=== PATIENT | male | born 1950 | race Caucasian/White ===

== ENCOUNTER 2023-08-17 11:34 | Inpatient (IN) | payer OTHER, MEDICAID ==
[~2023-08-17] VITALS: Ht 177.8 cm; Wt 81.2 kg
[2023-08-17 12:00] VITALS: BP 120/84; PULSE 96; RESP 16; TEMP 99.1; O2SAT 99
[2023-08-17] MEDS ORDERED: ASPI-1822 PO (12:08)
[2023-08-17] MEDS ORDERED: SODI100076 PO (12:08)
[2023-08-17] MEDS ORDERED: LOSA25TA32 PO (12:08)
[2023-08-17] MEDS ORDERED: ACET-9525 PO (12:08)
[2023-08-17] MEDS ORDERED: LACT-58 PO (12:08)
[2023-08-17] MEDS ORDERED: ESCI10TA PO (12:08)
[2023-08-17 12:22] LABS: BASOPHILS # (AUTO) 0.1 K/uL (0.00-0.22); BASOPHILS % (AUTO) 0.8 % (0.0-2.0); EOSINOPHILS # (AUTO) 0.1 K/uL (0-0.4); EOSINOPHILS % (AUTO) 0.9 % (0.0-4.0); HEMATOCRIT 48.7 % (36-52); HEMOGLOBIN 16.4 g/dL (12.0-18.0); LYMPHOCYTES # (AUTO) 1.8 K/uL (2.0-11.5); LYMPHOCYTES % (AUTO) 20.3 % (20.5-51.1); MEAN CORPUSCULAR HEMOGLOBIN 30 pg (27-31); MEAN CORPUSCULAR HGB CONC 34 g/dL (33-37); MONOCYTES # (AUTO) 0.6 K/uL (0.8-1.0); MONOCYTES % (AUTO) 6.7 % (1.7-9.3); NEUTROPHILS # (AUTO) 6.5 K/uL (1.8-7.7); NEUTROPHILS % (AUTO) 71.3 % (42.2-75.2); PLATELET COUNT (AUTO) 499 K/uL (140-450); RED BLOOD CELL COUNT(AUTO) 5.53 MIL/uL (4.20-6.10); RED CELL DISTRIBUTION WIDTH 14.8 % (11.6-13.7); WHITE BLOOD COUNT (AUTO) 9.1 K/uL (4.8-10.8)
[2023-08-17] MEDS: HALOPERIDOL IM 5 MG/ML VIAL IM ONE (12:41)
[2023-08-17 12:51] LABS: ALANINE AMINOTRANSFERASE 10 U/L (12-78); ALBUMIN 2.6 g/dL (3.4-5.0); ALKALINE PHOSPHATASE 103 U/L (50-136); ANION GAP 11.6 (8-16); ASPARTATE AMINOTRANSFERASE 11 U/L (15-37); CALCIUM 8.5 mg/dL (8.5-10.1); CHLORIDE 102 mmol/L (98-107); CREATININE 0.8 mg/dL (0.6-1.3); GLUCOSE 155 mg/dL (74-106); LIPASE 27 U/L (16-77); POTASSIUM 4.6 mmol/L (3.5-5.1); SODIUM SERUM 138 mmol/L (136-145); TOTAL BILIRUBIN 0.5 mg/dL (0.0-1.0); TOTAL PROTEIN, SERUM 7.8 g/dL (6.4-8.2); UREA NITROGEN, BLOOD 12 mg/dL (7-18)
[2023-08-17 14:33] LABS: APPEARANCE,URINE CLEAR (CLEAR); BILIRUBIN,URINE 1+ (NEGATIVE); BLOOD, URINE NEGATIVE (NEGATIVE); COLOR,URINE YELLOW (YELLOW); LEUKOCYTE ESTERASE ,URINE NEGATIVE (NEGATIVE); NITRITE, URINE NEGATIVE (NEGATIVE); PROTEIN,URINE NEGATIVE (NEGATIVE); UGLUCOSE NEGATIVE (NEGATIVE)
[2023-08-17 14:41] LABS: ICTOTEST POSITIVE (NEGATIVE)
[2023-08-17 15:09] LABS: ALCOHOL, BLOOD < 3 mg/dL (<10)
[2023-08-17 15:11] LABS: SALICYLATE < 2.8 mg/dL (2.8-20.0)
[2023-08-17 15:14] LABS: AMPHETAMINE, URINE NEGATIVE ng/ml (NEG <=1000); BARBITURATE, URINE NEGATIVE ng/ml (NEG <=200); BENZODIAZEPINE, URINE NEGATIVE ng/mL (NEG <=200); CANNABINOID, URINE NEGATIVE ng/mL (NEG <=50); COCAINE, URINE NEGATIVE ng/mL (NEG <=300); OPIATE, URINE NEGATIVE ng/mL (NEG <=2000); PHENCYCLIDINE SCREEN,URINE NEGATIVE ng/mL (NEG <=25)
[2023-08-17] MEDS ORDERED: LORazepam 1 MG TAB PO PRN (17:50)
[2023-08-17] MEDS ORDERED: ZOLPIDEM 5 MG TAB PO PRN (17:50)
[2023-08-17] MEDS ORDERED: HYDROcodone/APAP 5/325 MG 1 TAB TAB PO PRN (17:50)
[2023-08-17] MEDS ORDERED: cefTRIAXone 1,000 MG VIAL ONE (19:23)
[2023-08-17 21:21] VITALS: BP 144/92; PULSE 103; RESP 19; TEMP 97.5; O2SAT 95
[2023-08-17] MEDS: QUEtiapine FUMARATE 25 MG TAB PO SCH (21:28)
[2023-08-17] MEDS ORDERED: HALOPERIDOL IM 5 MG/ML VIAL IM PRN (23:59)
[2023-08-18 04:00] VITALS: BP 128/82; PULSE 93; RESP 19; TEMP 97; O2SAT 96
[2023-08-18 08:00] VITALS: BP 116/86; PULSE 89; RESP 18; TEMP 96.9; O2SAT 95
[2023-08-18] MEDS: ASPIRIN 81 MG TAB.CHEW PO SCH (08:38)
[2023-08-18] MEDS: DOCUSATE SODIUM 100 MG GELCAP PO SCH (08:38)
[2023-08-18] MEDS: ESCITALOPRAM 20 MG TAB PO SCH (08:39)
[2023-08-18] MEDS: LOSARTAN 25 MG TAB PO SCH (08:39)
[2023-08-18] MEDS: ENOXAPARIN 40 MG/0.4 ML SYR SUBQ SCH (08:40)
[2023-08-18 16:00] VITALS: BP 128/90; PULSE 98; RESP 18; TEMP 97.7; O2SAT 94
[2023-08-18 20:00] VITALS: BP 135/87; PULSE 102; RESP 18; TEMP 97.8; O2SAT 92; O2SAT 95
[2023-08-18] MEDS: OLANZapine 5 MG TAB PO SCH (21:00)
[2023-08-19] MEDS: ONDANSETRON 4 MG/2 ML VIAL IVP PRN (02:59)
[2023-08-19 04:00] VITALS: BP 116/81; PULSE 104; RESP 18; TEMP 97.7; O2SAT 92
[2023-08-19 08:00] VITALS: PULSE 92; RESP 18; O2SAT 97
[2023-08-19] MEDS: ATORVASTATIN 80 MG TAB PO SCH (09:00)
[2023-08-19 20:00] VITALS: PULSE 107; RESP 22; O2SAT 85
[2023-08-19 20:19] VITALS: BP 125/88; PULSE 107; RESP 22; TEMP 93.4; TEMP 96.1; O2SAT 85; O2SAT 92
[2023-08-20] VITALS (7 sets, daily range): BP systolic 111–127; BP diastolic 71–89; PULSE 84–105; RESP 16–22; TEMP 96.1–97; O2SAT 85–100
[2023-08-21 04:00] VITALS: RESP 20; TEMP 96.1
[2023-08-21 08:00] VITALS: RESP 18
[2023-08-21 20:00] VITALS: BP 145/69; PULSE 83; RESP 20; TEMP 95.9
[2023-08-21 20:29] VITALS: PULSE 83; RESP 20
[2023-08-21 23:36] VITALS: BP 127/80; PULSE 84; RESP 16; TEMP 96.4; O2SAT 98
[2023-08-22 04:00] VITALS: BP 114/76; PULSE 68; RESP 16; TEMP 96.9; O2SAT 96
[2023-08-22 08:00] VITALS: RESP 19
[2023-08-22] MEDS ORDERED: [UNRECOGNIZED DRUG - CODE] IM (14:22)
[2023-08-22 14:45] VITALS: BP 114/76; PULSE 68; RESP 19; TEMP 96.9
== END 2023-08-22 19:09 | DRG 640 ==
LOC: MED 11:34 → MMU 17:49 → MTU 19:00
PROVIDERS: ADMIT Student in an Organized Health Care Education/Training Program; ATTEND Student in an Organized Health Care Education/Training Program
DX: R62.7 Adult failure to thrive (principal); E43 Unspecified severe protein-calorie malnutrition; I69.354 Hemiplegia and hemiparesis following cerebral infarction affecting left non-dominant side; E78.5 Hyperlipidemia, unspecified; I10 Essential (primary) hypertension; F91.1 Conduct disorder, childhood-onset type; F99 Mental disorder, not otherwise specified; Z91.199 Patient's noncompliance with other medical treatment and regimen due to unspecified reason; Z68.25 Body mass index [BMI] 25.0-25.9, adult; Z79.899 Other long term (current) drug therapy
CPT/HCPCS: 36415; 80053; 80305; 81003; 83690; 84484; 85025; 87040; 87081; 93005; 96365; 96372; 99285; G0480; G0482; J0696; J1630; J1650; J2405